=== PATIENT | male | born 1975 | race Caucasian/White ===

== ENCOUNTER 2022-05-24 09:58 | Outpatient (CLI) | payer OTHER | END 2022-05-24 09:59 | disposition home or self-care (01) | LOC: BICMRI 09:58 | PROVIDERS: ATTEND Orthopaedic Surgery Hand Surgery | DX: S63.641D Sprain of metacarpophalangeal joint of right thumb, subsequent encounter (principal); S53.31XD Traumatic rupture of right ulnar collateral ligament, subsequent encounter; S53.21XD Traumatic rupture of right radial collateral ligament, subsequent encounter; S63.11 Subluxation and dislocation of metacarpophalangeal joint of thumb ==

== ENCOUNTER 2022-06-14 07:22 | Outpatient (CLI) | payer OTHER ==
[2022-06-14 07:58] LABS: #Basophils 0.1 10x3/uL (0.0-0.2); #Eosinphils 0.3 10x3/uL (0.0-0.5); #Monocytes 0.7 10x3/uL (0.0-1.1); #Neutrophils 6.1 10x3/uL (1.5-8.4); %Basophils 1.2 % (0.0-2.0); %Eosinophils 3.6 % (0.0-6.0); %Lymphocytes 19.8 % (18.0-47.0); %Monocytes 8.1 % (0.0-10.0); %Neutrophils 66.9 % (40.0-75.0); Hemoglobin 14.6 g/dL (13.5-17.5); Mean Corpuscular HGB CONC 36.1 g/dL (32.0-36.0); Mean Corpuscular Hemoglobin 32.6 pg (27.0-33.0); Mean Corpuscular Volume 90.2 fl (81.2-95.1); Platelet Count 239 10x3/uL (150-450); RBC Distribution Width 12.6 % (11.5-14.5); Red Blood Cell (RBC) Count 4.48 10x6/uL (4.32-5.72); White Blood Cell (WBC) Count 9.1 10x3/uL (3.5-10.5)
[2022-06-14 08:21] LABS: Anion Gap 15 mmol/L (10-20); BUN (Urea Nitrogen) 11 mg/dL (8.9-20.6); Calc. Creatinine Clearance 0 mL/min (70-130); Calcium 9.3 mg/dL (7.8-10.44); Carbon Dioxide 24 mmol/L (22-29); Chloride 101 mmol/L (98-107); Estimated GFR 93; Glucose 100 mg/dL (70-105); Potassium 4.1 mmol/L (3.5-5.1); Sodium 136 mmol/L (136-145)
== END 2022-06-14 07:23 | disposition home or self-care (01) ==
LOC: LABBT 07:22
PROVIDERS: ATTEND Orthopaedic Surgery Hand Surgery
DX: Z01.812 Encounter for preprocedural laboratory examination (principal); S63.641A Sprain of metacarpophalangeal joint of right thumb, initial encounter
CPT/HCPCS: 80048; 85025

== ENCOUNTER 2022-06-18 09:18 | Day surgery (SDC) | payer OTHER ==
[2022-06-14 13:48] VITALS: BMI 36.2
[2022-06-18] MEDS ORDERED: Bacitracin Zinc Ointment 30 gm TUBE ONE (12:55)
[2022-06-18] MEDS ORDERED: Neomycin-Polymyxin 1 ML AMP ONE (12:55)
[2022-06-18] MEDS ORDERED: Bupivacaine PF 0.5% 30 ML VIAL ONE (12:55)
[2022-06-18] MEDS ORDERED: fentaNYL Citrate/PF 100 MCG/2 ML SYRINGE ONE (13:28)
[2022-06-18] MEDS ORDERED: Sodium Chloride 0.9% 100 ML ONE (13:34)
[2022-06-18] MEDS ORDERED: CEFAZOLIN 2 GM VIAL ONE (13:34)
[2022-06-18] MEDS ORDERED: Ondansetron PF 4 MG/2 ML Vial ONE (13:41)
[2022-06-18] MEDS ORDERED: PROPOFOL 200 MG/20 ML VIAL ONE (13:41)
[2022-06-18] MEDS ORDERED: Dexamethasone 20 MG/5 ML VIAL ONE (13:41)
[2022-06-18] MEDS ORDERED: FENTANYL 50 MCG/ML VIAL 50 MCG/ML VIAL ONE ×2 (16:05→16:15)
[2022-06-18] MEDS ORDERED: Ketorolac Tromethamine 30 MG/ML VIAL ONE (16:33)
== END 2022-06-18 16:54 | disposition home or self-care (01) ==
LOC: SDC 09:18
PROVIDERS: ATTEND Orthopaedic Surgery Hand Surgery
PROC: 0RQU0ZZ Repair Right Metacarpophalangeal Joint, Open Approach (ICD-10-PCS; principal; 2022-06-18)
PROC: 0MQ70ZZ Repair Right Hand Bursa and Ligament, Open Approach (ICD-10-PCS; principal; 2022-06-18)
DX: S63.418A Traumatic rupture of collateral ligament of other finger at metacarpophalangeal and interphalangeal joint, initial encounter (principal); I10 Essential (primary) hypertension; E78.5 Hyperlipidemia, unspecified; F17.290 Nicotine dependence, other tobacco product, uncomplicated; E66.9 Obesity, unspecified; Z68.37 Body mass index [BMI] 37.0-37.9, adult; Z79.82 Long term (current) use of aspirin; Z79.899 Other long term (current) drug therapy; W18.09XA Striking against other object with subsequent fall, initial encounter
CPT/HCPCS: C1713; C1894; J1885; J3010; J3490; S0020

== ENCOUNTER 2024-09-16 13:30 | Outpatient (CLI) | payer OTHER | END 2024-09-16 13:31 | disposition home or self-care (01) | LOC: SCSRAD 13:30 | PROVIDERS: ATTEND Family Medicine | DX: S49.91XA Unspecified injury of right shoulder and upper arm, initial encounter (principal); J98.01 Acute bronchospasm; I10 Essential (primary) hypertension; E78.2 Mixed hyperlipidemia ==